=== PATIENT | male | born 1985 | race Caucasian/White ===

== ENCOUNTER 2018-08-18 09:03 | Emergency (ER) | payer BC, SELFPAY ==
[2018-08-18 09:14] VITALS: BP 143/97; PULSE 78; RESP 16; TEMP 36.9; O2SAT 95
--- NOTE | 2018-08-18 09:53 | W.ED.GENAD ---
Discharge Plan Disposition Patient Disposition: HOME Condition: Fair Discharge Details Chief Complaint: Orthopedic Clinical Impression: Fracture of middle phalanx of finger, Closed dislocation finger, proximal interphalangeal joint, traumatic Primary Care Provider: Edwin Jiang ED Provider: Usha Montague Discharge Instructions Instructions: Finger Fracture (ED) Additional Instructions: Encourage rest, ice, elevation. Tylenol and ibuprofen as needed for discomfort. Please continue with splint until cleared by orthopedics. Please call orthopedics today to schedule follow-up appointment. Avoid activities that that pressure on the finger. If you develop increased pain, fever/chills or other new/worsening symptoms please seek care urgently once again Referrals: Beau Xiao MD [ [facility] STAFF PHYSICIAN] - Medical Decision Making This is a 33-year-old [id number] male presents today with chief complaint of left hand pain. He reports that yesterday he rolled underscore relearn to support the PIP joint of the finger. Reports that it was ulnarly deviated. Self reduce this and had immediate improvement in his discomfort. Reports that last night however he noted increased discomfort, swelling and ecchymosis. Swelling and ecchymosis is located over the proximal phalanx of the middle finger. He is also endorsing some discomfort over the dorsal side of the MCP joint of the second digit. His ligaments are intact. Limited range of motion of the PIP joint of the middle finger, likely secondary to swelling. Plan to obtain radiographic imaging to evaluate for any bony abnormality Fracture is noted as the middle phalanx at the PIP joint, suspect in the lateral view. Nondisplaced. Otherwise without acute findings. She was fitted with a foam metal splint to immobilize the digit. Encourage rest, ice, elevation. Tylenol and ibuprofen as needed for discomfort. Advised will need follow-up with orthopedics, he will call to schedule appointment. We discussed new/worsening symptoms when to seek care urgently once again. We discussed activities that he should avoid. All his questions and concerns were addressed and he is in agreement this plan. HPI General Mode of arrival: ambulatory. Date/Time Provider Initiated Documentation: 08/18/18 09:51. Limitations to Documentation: no limitations. Information obtained by: patient and RN notes reviewed. History of Present Illness 33 year old M presents to the emergency department with the chief complaint of left hand pain, described as mild, with intensity rated at 2. Quality is described as aching, and is localized to the left and upper extremity. Patient started experiencing this day(s) (1) and it has been constant. Immobilization improves symptom(s), Movement worsens symptoms . Patient notes no other symptoms.. Patient did receive the following treatments prior to arrival, none General Stated Complaint: Orthopedic TITO: 4 Review of Systems Constitutional Reports as per HPI, Denies chills, Denies fever(s), Denies headache(s) and Denies weakness ENT Denies headache(s) Cardiovascular Reports as per HPI Respiratory Reports as per HPI and Denies cough Musculoskeletal Reports as per HPI and Denies tingling Integumentary/Breasts Reports as per HPI, Denies rash and Denies wounds Neurologic Reports as per HPI, Denies headache(s), Denies tingling, Denies paresthesias and Denies weakness [facility] Social History Smoking/Tobacco Use Status: Never Alcohol Intake: current Alcohol Intake frequency: holidays/special occasions only Substance use type: does not use Do you feel safe at home: Yes Exam Const General: cooperative, healthy appearing, comfortable, no acute distress, well developed and well groomed Nutritional Appearance: average body habitus and well nourished Orientation: alert and awake Resp Effort & Inspection: normal respiratory effort, able to speak in complete sentences and no respiratory distress Cardio Rate: regular rate Rhythm: regular rhythm Skin General skin exam: ecchymosis (proximal phalynx left middle finger) Neuro General: alert and awake Cognition: normal cognition Speech: speech normal Gait: normal gait Motor: muscle tone normal throughout Sensory Exam: no sensory deficits noted Extrem Left upper extremity: normal capillary refill, wrist Details: normal to inspection and normal ROM and hand Details: normal capillary refill, neuromotor exam normal, neurosensory exam normal, tendon exam normal and tenderness Location: of the 2nd digit Location: at the MCP joint and of the 3rd digit Location: at the proximal phalanx (swelling and ecchymosis) and at the PIP joint; ROM limited (limited ROM at PIP left midde finger) Psych Appearance: grossly normal and well kempt Mental Status: mental status grossly normal Speech and Movement: speech and movement normal Course Vital Signs Temperature 36.9 C 08/18/18 09:14 Pulse 78 08/18/18 09:14 Respiratory Rate 16 08/18/18 09:14 Blood Pressure 143/97 H 08/18/18 09:14 Pulse Oximetry 95 08/18/18 09:14 Temperature 36.9 C 08/18/18 09:14 Temperature Source Skin 08/18/18 09:14 Pulse 78 08/18/18 09:14 Respiratory Rate 16 08/18/18 09:14 Respiratory Effort Non-Labored 08/18/18 09:19 Blood Pressure 143/97 H 08/18/18 09:14 Blood Pressure Position Sitting 08/18/18 09:14 Pulse Oximetry 95 08/18/18 09:14 Oxygen Delivery Method Room Air 08/18/18 09:14 Oxygen Flow Rate 0 08/18/18 09:14 Pain Level 2 08/18/18 09:14
--- NOTE | 2018-08-18 10:07 | DI.RAD_ITS ---
SYMPTOM/DIAGNOSIS: TRAUMA, PAIN MCP INDEX, DISLOCATED PIP, SELF REDUCED LEFT HAND: Three views. There is a nondisplaced fracture of the volar plate of the middle phalanx of the left middle finger. There is associated soft tissue swelling. No other fracture or dislocation is seen. No radiopaque foreign bodies are seen in the soft tissues. IMPRESSION: Volar plate fracture at the base of the middle phalanx of the left middle finger.
--- NOTE | 2018-08-18 10:11 | ED.GENADUL_ITS ---
Discharge Plan Disposition Patient Disposition: HOME Condition: Fair Discharge Details Chief Complaint: Orthopedic Clinical Impression: Fracture of middle phalanx of finger, Closed dislocation finger, proximal interphalangeal joint, traumatic Primary Care Provider: Edwin Jiang ED Provider: Usha Montague Discharge Instructions Instructions: Finger Fracture (ED) Additional Instructions: Encourage rest, ice, elevation. Tylenol and ibuprofen as needed for discomfort. Please continue with splint until cleared by orthopedics. Please call orthopedics today to schedule follow-up appointment. Avoid activities that that pressure on the finger. If you develop increased pain, fever/chills or other new/worsening symptoms please seek care urgently once again Referrals: Beau Xiao MD [ [facility] STAFF PHYSICIAN] - Medical Decision Making This is a 33-year-old [id number] male presents today with chief complaint of left hand pain. He reports that yesterday he rolled underscore rel earn to support the PIP joint of the finger. Reports that it was ulnarly deviated. Self reduce this and had immediate improvement in his discomfort. Reports that last night however he noted increased discomfort, swelling and ecchymosis. Swelling and ecchymosis is located over the proximal phalanx of the middle finger. He is also endorsing some discomfort over the dorsal side of the MCP joint of the second digit. His ligaments are intact. Limited range of motion of the PIP joint of the middle finger, likely secondary to swelling. Plan to obtain radiographic imaging to evaluate for any bony abnormality Fracture is noted as the middle phalanx at the PIP joint, suspect in the lateral view. Nondisplaced. Otherwise without acute findings. She was fitted with a foam metal splint to immobilize the digit. Encourage rest, ice, elevation. Tylenol and ibuprofen as needed for discomfort. Advised will need follow-up with orthopedics, he will call to schedule appointment. We discussed new/worsening symptoms when to seek care urgently once again. We discussed activities that he should avoid. All his questions and concerns were addressed and he is in agreement this plan. HPI General Mode of arrival: ambulatory . Date/Time Provider Initiated Documentation: 08/18/18 09:51 . Limitations to Documentation: no limitations . Information obtained by: patient and RN notes reviewed . History of Present Illness 33 year old M presents to the emergency department with the chief complaint of left hand pain, described as mild, with intensity rated at 2. Quality is described as aching, and is localized to the left and upper extremity. Patient started experiencing this day(s) (1) and it has been constant. Immobilization improves symptom(s), Movement worsens symptoms . Patient notes no other symptoms.. Patient did receive the following treatments prior to arrival, none General Stated Complaint: Orthopedic TITO: 4 Review of Systems Constitutional Reports as per HPI, Denies chills, Denies fever(s), Denies headache(s) and Denies weakness ENT Denies headache(s) Cardiovascular Reports as per HPI Respiratory Reports as per HPI and Denies cough Musculoskeletal Reports as per HPI and Denies tingling Integumentary/Breasts Reports as per HPI, Denies rash and Denies wounds Neurologic Reports as per HPI, Denies headache(s), Denies tingling, Denies paresthesias and Denies weakness [facility] Social History Smoking/Tobacco Use Status: Never Alcohol Intake: current Alcohol Intake frequency: holidays/special occasions only Substance use type: does not use Do you feel safe at home: Yes Exam Const General: cooperative, healthy appearing, comfortable, no acute distress, well developed and well groomed Nutritional Appearance: average body habitus and well nourished Orientation: alert and awake Resp Effort & Inspection: normal respiratory effort, able to speak in complete sentences and no respiratory distress Cardio Rate: regular rate Rhythm: regular rhythm Skin General skin exam: ecchymosis (proximal phalynx left middle finger) Neuro General: alert and awake Cognition: normal cognition Speech: speech normal Gait: normal gait Motor: muscle tone normal throughout Sensory Exam: no sensory deficits noted Extrem Left upper extremity: normal capillary refill, wrist Details: normal to inspection and normal ROM and hand Details: normal capillary refill, neuromotor exam normal, neurosensory exam normal, tendon exam normal and tenderness Location: of the 2nd digit Location: at the MCP joint and of the 3rd digit Location: at the proximal phalanx (swelling and ecchymosis) and at the PIP joint; ROM limited (limited ROM at PIP left midde finger) Psych Appearance: grossly normal and well kempt Mental Status: mental status grossly normal Speech and Movement: speech and movement normal Course Vital Signs Temperature 36.9 C 08/18/18 09:14 Pulse 78 08/18/18 09:14 Respiratory Rate 16 08/18/18 09:14 Blood Pressure 143/97 H 08/18/18 09:14 Pulse Oximetry 95 08/18/18 09:14 Temperature 36.9 C 08/18/18 09:14 Temperature Source Skin 08/18/18 09:14 Pulse 78 08/18/18 09:14 Respiratory Rate 16 08/18/18 09:14 Respiratory Effort Non-Labored 08/18/18 09:19 Blood Pressure 143/97 H 08/18/18 09:14 Blood Pressure Position Sitting 08/18/18 09:14 Pulse Oximetry 95 08/18/18 09:14 Oxygen Delivery Method Room Air 08/18/18 09:14 Oxygen Flow Rate 0 08/18/18 09:14 Pain Level 2 08/18/18 09:14
== END 2018-08-18 11:05 | disposition home or self-care (01) ==
PROVIDERS: Emergency Provider Physician Assistant; PCP Family Medicine
DX: S62.653A Nondisplaced fracture of middle phalanx of left middle finger, initial encounter for closed fracture (principal); S63.283A Dislocation of proximal interphalangeal joint of left middle finger, initial encounter; V86.05XA Driver of 3- or 4- wheeled all-terrain vehicle (ATV) injured in traffic accident, initial encounter
CPT/HCPCS: 26720; 73130

== ENCOUNTER 2018-08-26 15:18 | Outpatient (CLI) | payer BC, SELFPAY ==
--- NOTE | 2018-08-26 15:14 | DI.RAD_ITS ---
SYMPTOMS/DIAGNOSIS: F/U FRACTURE LEFT MIDDLE FINGER: Soft tissue swelling is identified. There is a minimally displaced fracture involving the anterior portion of the proximal metaphysis of the middle phalanx adjacent to the interphalangeal joint. There is no evidence of a dislocation.
== END 2018-08-26 15:38 ==
PROVIDERS: PCP Family Medicine; Visit Provider Orthopaedic Surgery
DX: S62.653A Nondisplaced fracture of middle phalanx of left middle finger, initial encounter for closed fracture (principal)
CPT/HCPCS: 73140

== ENCOUNTER 2019-08-07 01:30 | Emergency (ER) | payer OTHER, SELFPAY ==
[2019-08-07 01:33] VITALS: BP 170/93; PULSE 69; RESP 16; TEMP 36.6; O2SAT 99
--- NOTE | 2019-08-07 01:38 | ED.GENADUL_ITS ---
Discharge Plan Disposition Patient Disposition: HOME Condition: Stable Discharge Details Chief Complaint: Orthopedic Clinical Impression: Neck pain on left side Primary Care Provider: Edwin Jiang ED Provider: Avery Magaña Home Meds and New Rx's Prescriptions: New cyclobenzaprine 10 mg tablet 10 mg PO TID PRNQty: 20 RF: 0 Discharge Instructions Instructions: Neck Pain (ED) Additional Instructions: you can take 1000mg tylenol and 600mg ibuprofen every 6 hours for pain as needed follow up with your primary care provider in 1-2 weeks if you have severe worsening pain or fevers or vision changes return to the emergency department Medical Decision Making 34 yo male who denies chronic medical problems, smoking alcohol or drug use comes in with 2-3 weeks of nontraumatic left sided neck pain. Denies fevers, weakness vision changes. Has seen chiropractor,last this past Thursday without manipulation and had negative xrays. On exam has pain over left trapezius, no weakness, no midline pain or restricted neck movements, CN II-xII intact. Pain seems most likely strain vs spasm and could also be cervical radiulopathy. NOindication on history or physical exam to suggest SEA or dissection. Will have him use tylenol and ibuprofen and also muscle relaxers prn and f/u with pcp. Return precautions given Differential Diagnosis Differential Diagnosis: neck strain, cervical radiulopathy, spasm HPI General Mode of arrival: ambulatory . Date/Time Provider Initiated Documentation: 08/07/19 01:31 . Limitations to Documentation: no limitations . Information obtained by: patient . History of Present Illness 34 year old M presents to the emergency department with the chief complaint of left sided neck pain, described as moderate, and it has been constant. No relieving factors improve symptom(s), No exacerbating factors reported . Patient did receive the following treatments prior to arrival, NSAID Related Data Home Medications Medication Instructions Recorded Confirmed cyclobenzaprine 10 mg PO TID PRN #20 tab 08/07/19 Previous Rx's Medication Instructions Recorded cyclobenzaprine 10 mg PO TID PRN #20 tab 08/07/19 General Stated Complaint: Orthopedic TITO: 5 Review of Systems All systems reviewed & are unremarkable except as noted in HPI and below Constitutional Constitutional: Denies chills, Denies fever(s) and Denies weakness Cardiovascular Cardiovascular: Denies chest pain and Denies dyspnea Respiratory Respiratory: Denies cough and Denies dyspnea Gastrointestinal Gastrointestinal: Denies abdominal pain, Denies nausea and Denies vomiting Neurologic Neurologic: Denies weakness Psychiatric Psychiatric: Denies depression [facility] Social History Smoking/Tobacco Use Status: Never Alcohol Intake: current Alcohol Intake frequency: holidays/special occasions only Substance use type: does not use Do you feel safe at home: Yes Exam Const General: no acute distress Orientation: alert HENMT Head: normal to inspection Ears: external ears normal General nose exam: external nose normal Mouth: moist mucous membranes Eyes General: appearance normal, both eyes and all related structures Neck Neck: normal visual inspection Resp Effort & Inspection: normal respiratory effort and able to speak in complete sentences Cardio Rate: regular rate Skin General skin exam: no rashes or lesions noted Neuro General: patient alert and patient oriented x3 Extrem General: normal to inspection Psych Mental Status: mental status grossly normal Course Vital Signs Vital signs: Vital Signs Temperature 36.6 C 08/07/19 01:33 Pulse 69 08/07/19 01:33 Respiratory Rate 16 08/07/19 01:33 Blood Pressure 170/93 H 08/07/19 01:33 Pulse Oximetry 99 08/07/19 01:33 Temperature 36.6 C 08/07/19 01:33 Temperature Source Oral 08/07/19 01:33 Pulse 69 08/07/19 01:33 Respiratory Rate 16 08/07/19 01:33 Blood Pressure 170/93 H 08/07/19 01:33 Blood Pressure Position Sitting 08/07/19 01:33 Pulse Oximetry 99 08/07/19 01:33 Oxygen Delivery Method Room Air 08/07/19 01:33 Oxygen Flow Rate 0 08/07/19 01:33
[2019-08-07] MEDS: Cyclobenzaprine 10 MG TAB, 3 TABS/BTL PO (01:44)
== END 2019-08-07 01:45 | disposition home or self-care (01) ==
LOC: ER 01:55
PROVIDERS: Emergency Provider Emergency Medicine; PCP Family Medicine
DX: M54.2 Cervicalgia (principal)
CPT/HCPCS: 99283